=== PATIENT | female | born 1940 | race Caucasian/White ===

== ENCOUNTER 2021-02-13 11:48 | Outpatient (REF) | payer MEDICARE, OTHER, SELFPAY | END 2021-02-13 11:49 | disposition home or self-care (01) | LOC: HO.BBR 11:48 | PROVIDERS: Visit Provider Internal Medicine Hematology | DX: Z13.89 Encounter for screening for other disorder (principal) ==

== ENCOUNTER 2021-05-16 11:48 | Outpatient (REF) | payer MEDICARE, OTHER, SELFPAY | END 2021-05-16 11:49 | disposition home or self-care (01) | LOC: HO.BBR 11:48 | PROVIDERS: PCP Internal Medicine; Visit Provider Internal Medicine Hematology | DX: Z13.89 Encounter for screening for other disorder (principal) ==

== ENCOUNTER 2021-08-14 10:49 | Outpatient (REF) | payer MEDICARE, OTHER, SELFPAY | END 2021-08-14 10:50 | disposition home or self-care (01) | LOC: HO.BBR 10:49 | PROVIDERS: Visit Provider Internal Medicine Hematology | DX: Z13.89 Encounter for screening for other disorder (principal) ==

== ENCOUNTER 2021-11-14 10:39 | Outpatient (REF) | payer MEDICARE, OTHER, SELFPAY | END 2021-11-14 10:40 | disposition home or self-care (01) | LOC: HO.BBR 10:39 | PROVIDERS: Visit Provider Internal Medicine Hematology | DX: Z13.89 Encounter for screening for other disorder (principal) ==

== ENCOUNTER 2022-02-15 10:05 | Outpatient (REF) | payer MEDICARE, OTHER, SELFPAY | END 2022-02-15 10:06 | disposition home or self-care (01) | LOC: HO.BBR 10:05 | PROVIDERS: Visit Provider Internal Medicine Hematology | DX: Z13.89 Encounter for screening for other disorder (principal) ==

== ENCOUNTER 2022-05-18 10:43 | Outpatient (REF) | payer MEDICARE, OTHER, SELFPAY | END 2022-05-18 10:44 | disposition home or self-care (01) | LOC: HO.BBR 10:43 | PROVIDERS: Visit Provider Internal Medicine Hematology | DX: Z13.89 Encounter for screening for other disorder (principal) ==

== ENCOUNTER 2022-08-16 10:54 | Outpatient (REF) | payer MEDICARE, OTHER, SELFPAY | END 2022-08-16 10:55 | disposition home or self-care (01) | LOC: HO.BBR 10:54 | PROVIDERS: Visit Provider Internal Medicine Hematology | DX: Z13.89 Encounter for screening for other disorder (principal) ==

== ENCOUNTER 2022-12-13 12:12 | Outpatient (REF) | payer MEDICARE, OTHER, SELFPAY | END 2022-12-13 12:13 | disposition home or self-care (01) | LOC: HO.BBR 12:12 | PROVIDERS: Visit Provider Internal Medicine Hematology | DX: Z13.89 Encounter for screening for other disorder (principal) ==

== ENCOUNTER 2023-03-13 11:51 | Outpatient (REF) | payer MEDICARE, OTHER, SELFPAY | END 2023-03-13 11:52 | disposition home or self-care (01) | LOC: HO.BBR 11:51 | PROVIDERS: Visit Provider Internal Medicine Hematology | DX: Z13.89 Encounter for screening for other disorder (principal) ==

== ENCOUNTER 2023-06-13 10:50 | Outpatient (REF) | payer MEDICARE, OTHER, SELFPAY | END 2023-06-13 10:51 | disposition home or self-care (01) | LOC: HO.BBR 10:50 | PROVIDERS: PCP Internal Medicine; Visit Provider Internal Medicine Hematology | DX: Z13.89 Encounter for screening for other disorder (principal) ==

== ENCOUNTER 2023-09-16 11:41 | Outpatient (REF) | payer MEDICARE, OTHER, SELFPAY | END 2023-09-16 11:42 | disposition home or self-care (01) | LOC: HO.BBR 11:41 | PROVIDERS: PCP Internal Medicine; Visit Provider Internal Medicine Hematology | DX: Z13.89 Encounter for screening for other disorder (principal) ==

== ENCOUNTER 2024-01-16 10:51 | Outpatient (REF) | payer MEDICARE, OTHER, SELFPAY | END 2024-01-16 10:52 | disposition home or self-care (01) | LOC: HO.BBR 10:51 | PROVIDERS: PCP Internal Medicine; Visit Provider Internal Medicine Hematology | DX: Z13.89 Encounter for screening for other disorder (principal) ==

== ENCOUNTER 2024-05-07 08:57 | Outpatient (REF) | payer MEDICARE, OTHER, SELFPAY ==
--- OUTSIDE RECORDS SUMMARY | 2024-05-07 09:42 | XMS_ITS | Continuity of Care Document ---
Author Organization [facility] Address [address] [place] [id number]- Care Team Providers Care Packaging Sales Name Role Phone Martín Matthews MD Primary Care Physician Encounter [facility] R [id number] Date(s): 03/16/24 - 04/15/24 [facility] [address] [place] [address] Attending Physician: Kelby Lux Admitting Physician: AdmKelby garcia Referring Physician: AdmtrKelby Encounter Type: Triage Allergies, Adverse Reactions, Alerts Substance Criticality Severity Reaction Reaction Severity Status codeine gi Active penicillins hives Active Reglan Active Immunizations Given and Recorded Vaccine Date Status Refusal Reason Influenza Virus Vaccine (oldterm) 02/14/24 Recorde d Influenza Virus Vaccine (oldterm) 01/15/23 Recorde d Influenza Virus Vaccine (oldterm) 12/03/19 Recorde d Influenza Virus Vaccine (oldterm) 01/23/19 Recorde d Influenza Virus Vaccine (oldterm) 1 02/03/08 Given Influenza Virus Vaccine (oldterm) 03/28/07 Given Influenza Virus Vaccine (oldterm) 2 02/12/06 Given SARS-CoV-2(COVID-19)mRNA-LNP vac([id number]) 02/11/24 Recorded SARS-CoV-2(COVID-19)mRNA-LNP vac(ygf632) 03/08/23 Recorded RSV vaccine preF3, recombinant 03/22/23 Recorded [id number] bivalent booster vax 10/30/22 Recorded [id number] 12y+ bivalent booster vax 01/11/22 Recorded influenza virus vaccine, inactivated 01/02/22 Jay rded influenza virus vaccine, inactivated 01/11/21 Jay rded influenza virus vaccine, inactivated 01/02/19 Jay rded influenza virus vaccine, inactivated 3 02/17/18 Gi tracey influenza virus vaccine, inactivated 4 02/11/17 Gi tracey influenza virus vaccine, inactivated 03/16/16 Jay rded influenza virus vaccine, inactivated 01/13/16 Jay rded influenza virus vaccine, inactivated 5 01/25/15 Re corded influenza virus vaccine, inactivated 6 01/11/14 Gi tracey influenza virus vaccine, inactivated 7 01/20/13 Re corded influenza virus vaccine, inactivated 8 02/19/12 Gi tracey influenza virus vaccine, inactivated 05/25/11 Gi tracey influenza virus vaccine, inactivated 10 01/20/11 G iven influenza virus vaccine, inactivated 11 01/05/10 G iven SARS-CoV-2 mRNA ([id number]) vax 08/10/21 Recorded SARS-CoV-2 (COVID-19) mRNA BNT-162b2 vac 02/02/21 Recorded SARS-CoV-2 (COVID-19) mRNA BNT-162b2 vac 06/07/20 Recorded SARS-CoV-2 (COVID-19) mRNA BNT-162b2 vac 05/17/20 Recorded zoster vaccine, inactivated 05/04/19 Recorded zoster vaccine, inactivated 01/23/19 Recorded tetanus-diphtheria toxoids (Td) 08/19/18 Recorded tetanus-diphtheria toxoids (Td) 12 08/27/06 Given tetanus-diphtheria toxoids (Td) 09/08/96 Given pneumococcal 13-valent vaccine 13 02/28/15 Recorde d tetanus/diphtheria/pertussis, acel(Tdap) 09/29/12 Given FluLaval (oldterm) 01/13/09 Given Pneumococcal Vaccine (oldterm) 08/10/03 Given 1Admin Note: sanofi 2Admin Note: SONOFI PASTEUR 3Result Comment: [02/17/2018] [id number] 4Result Comment: [02/11/2017] AFFLURIA 0.5 [id number] 5Result Comment: [03/30/2015] [facility] 6Admin Note: FLUZONE [id number] 7Result Comment: [04/02/2013] [facility] pt [facility] 8Admin Note: given w/ o incident 9Admin Note: PER PT 10Admin Note[facility] 11Admin Note: given without incident and handout given 12Admin Note: [facility] 13Result Comment: [03/30/2015] [facility] Medications acetaminophen 650 mg oral tablet, extended release 1 tablet, By Mouth, Every 8 hours, # 90 tablet, 0 Refills, Maintenance, 02/18/24 1:42:00 PM EST, [id number], 175, cm, 02/14/24 11:30:00 EDT, Height, 90.4, kg, 01/28/24 8:41:00 EDT, Dry Weight Start Date: 02/18/24 Status: Ordered Quantity: 90.0 Unit: tablet Repeat number: 1 amiodarone 200 mg oral tablet 200 mg, 1, tablet, By Mouth, Daily, # 30 tablet, Refills 6, Tot. Refills 6, Maintenance, 12/20/23 7:43:00 AM EDT, Route to Pharmacy Electronically, [facility]/pharmacy #[id number], Partial fill upon patient requestif the prescription is for a schedule II opioid drug., 175, cm, 12/19/23 7:38:00 EDT, Height, 89.8,kg, 11/28/23 9:30:00 EDT, Dry Weight Start Date: 12/20/23 Status: Ordered Quantity: 30.0 Unit: tablet Repeat number: 7 amLODIPine 10 mg oral tablet 1 tablet = 10 mg, By Mouth, Daily, # 90 tablet, 3 Refills, Maintenance, 11/27/23 10:32:00 AM EDT, Tablet, [facility]/pharmacy #[id number], 175, cm, 11/25/23 7:54:00 EDT, Height, 89, kg, 11/24/23 14:28:00 EDT, Dry Weight Start Date: 11/27/23 Stop Date: 11/21/24 Status: Ordered Quantity: 90.0 Unit: tablet Repeat number: 4 atorvastatin 40 mg oral tablet 1 tablet = 40 mg, By Mouth, Daily, # 90 tablet, 3 Refills, Maintenance, 02/19/24 12:32:00 PM EST, Tablet, [facility]/pharmacy #[id number], Partial fill upon patient request if the prescription is for a schedule IIopioid drug., 175, cm, 02/19/24 11:56:00 EST, Height, 90.4, kg, 01/28/24 8:41:00 EDT, Dry Weight Start Date: 02/19/24 Status: Ordered Quantity: 90.0 Unit: tablet Repeat number: 4 Compression Stockings See Instructions, # 2 each, Maintenance, surgical, calf length 20-30 mm Hg Dx: Venous insufficiency(I87.2) Length of Need: lifetime, 03/02/21 12:22:00 PM EST, Supply Start Date: 03/02/21 Status: Ordered Quantity: 2.0 Unit: each Repeat number: 1 CPAP Machine See Instructions, # 1 each, Maintenance, AutoCPAP 10-14, 01/14/23 9:32:00 AM EDT, Supply Start Date: 01/14/23 Status: Ordered Quantity: 1.0 Unit: each Repeat number: 1 Eliquis 5 mg oral tablet 1 tablet, By Mouth, 2 times a day, # 180 tablet, 3 Refills, Maintenance, 07/31/23 10:00:00 PM EDT, [id number], 174, cm, 07/18/23 8:47:00 EDT, Height, 93.1, kg, 01/24/23 11:12:00 EDT, Dry Weight Start Date: 07/31/23 Status: Ordered Quantity: 180.0 Unit: tablet Repeat number: 1 irbesartan 300 mg oral tablet 1 tablet = 300 mg, By Mouth, Daily, # 90 tablet, 1 Refills, Maintenance, 02/20/24 4:26:00 PM EST, Tablet, [facility]/pharmacy #[id number], Partial fill upon patient request if the prescription is for a schedule IIopioid drug., 175, cm, 02/19/24 11:56:00 EST, Height, 90.4, kg, 01/28/24 8:41:00 EDT, Dry Weight Start Date: 02/20/24 Status: Ordered Quantity: 90.0 Unit: tablet Repeat number: 2 mesalamine 250 mg oral capsule, extended release = 250 mg, By Mouth, 2 times a day, # 480 capsule, 0 Refills, Maintenance, 06/17/22 8:32:00 PM EST, [facility], Partial fill upon patient request if the prescription is for a schedule II opioid drug. Start Date: 06/17/22 Status: Ordered Quantity: 480.0 Unit: capsule Repeat number: 1 Multivitamin Tablet 1 tablet, By Mouth, Daily, 0 Refills, 11/08/05 3:29:15 PM EDT Start Date: 11/08/05 Status: Ordered Repeat number: 1 nystatin-triamcinolone topical 367861 u/gm-0.1% cream 1 applicator, Topically, 3 times a day, # 30 Gm, 5 Refills, Maintenance, 07/18/23 9:14:00 AM EDT, [id number], 1 applicator Topically 3 times a day, 174, cm, 07/18/23 8:47:00 EDT, Height, 93.1, kg, 01/24/23 11:12:00 EDT, Dry Weight Start Date: 07/18/23 Status: Ordered Quantity: 30.0 Unit: g Repeat number: 6 omeprazole 40 mg oral enteric coated capsule 1 capsule = 40 mg, By Mouth, Daily, replace 20 mg, # 30 capsule, 11 Refills, Maintenance, 03/11/24 12:50:00 PM EST, EC Capsule, [facility], Partial fill upon patient request if the prescription is for a schedule II opioid drug., 175, cm, 03/11/24 12:04:00 EST, Height, 88.9, kg, 03/11/24 12:04:00 EST, Dry Weight Start Date: 03/11/24 Stop Date: 03/06/25 Status: Ordered Quantity: 30.0 Unit: capsule Repeat number: 12 Indication: Gastro-esophageal reflux disease without esophagitis OUTPATIENT PHYSICAL THERAPY OUTPATIENT PHYSICAL THERAPY, See Instructions, # 14 each, Refills 0, Tot. Refills 0, Maintenance, For walking difficulties, 06/19/22 11:55:00 AM EST, Supply Start Date: 06/19/22 Status: Ordered Quantity: 14.0 Unit: each Repeat number: 1 torsemide 5 mg oral tablet 1 tablet = 5 mg, By Mouth, Daily, # 90 tablet, 3 Refills, Maintenance, 03/11/24 12:51:00 PM EST, Tablet, [id number], this is the correct dosage, 175, cm, 03/11/24 12:04:00 EST, Height, 88.9, kg, 03/11/24 12:04:00 EST, Dry Weight Start Date: 03/11/24 Status: Ordered Quantity: 90.0 Unit: tablet Repeat number: 4 Problem List Condition Confirmation Course Effective Dates Status H ealth Status Informant Acne rosacea Confirmed Active Aortic stenosis miold to moderate Confirmed 06/13/16 Active Cholelithiasis seen on CT scan Confirmed 11/08/17 Active Cervical osteoarthritis with multiple disc space narrowings Confirmed 04/01/08 Active Chronic kidney disease, stage 3a 1 Confirmed Active Chronic mixed headache syndrome Confirmed 04/19/08 Active COVID-19 2 Confirmed 05/10/23 Active Crohn's disease Confirmed Active Grade II diastolic dysfunction with mild Confirmed 06/17/20 Active Rectocele Confirmed Active FH: Diabetes mellitus father also with HBP Confirmed Active GORD - Gastro-esophageal reflux disease Confirmed Active H/O: obesity Confirmed Active 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 Confirmed 11/08/20 Active Hyperlipidemia Confirmed Active Hypertension Confirmed Active IBS - Irritable bowel syndrome Confirmed Active Malignant melanoma face Confirmed 12/17/17 Active OA - Osteoarthritis of knee-left knee Confirmed Active JOSE ANTONIO (obstructive sleep apnea) Confirmed 01/07/21 Active Osteopenia Confirmed Active PAF (paroxysmal atrial fibrillation) Confirmed Active Neuropathy, peripheral Confirmed Active PERSONAL HISTORY OF COLONIC POLYPS Confirmed Active PUD - Peptic ulcer disease-Hpylori + 1997 (Prevpak) Confirmed Active Restless leg Confirmed Active RBBB Confirmed 02/12/22 Active Stripping of varicose veins Confirmed Active Syncope Confirmed Active Thyroid nodule Confirmed Active Torticollis age 3 Confirmed Active Vaginal hysterectomy Confirmed Active 1Per chart review meeting GFR criteria 2Problem added by Discern Expert Social History Social History Type Response Smoking Status Never smoker; Tobacc o user in household: No entered on: 04/02/13 Sex Female Sex Representation Female (finding) Cardiology * Event Display: [employer] Report Authored Date: * Pennie Jeffries MD: REVIEW Event Display: [employer] Report Authored Date: * Event Display: [employer] Report Authored Date: Patient Care team information Care Team Personnel Name: Martín Matthews MD Position: [facility] Physician - Primary Care Member Role: PCP Address: [address] [place] [address] Adult [place] [address]- [place] [employer]: Name: Magalie Romero RN Position: S RN Member Role: Primary Care Nurse Name: Kaitlynn Estevez RN Position: S RN Member Role: Primary Care Nurse Name: Get Quintana RN Position: [facility] RN Member Role: Primary Care Nurse Name: Tamika Hobson RN Position: [facility] RN Member Role: Primary Care Nurse Care Team Related Persons Name: CRISTIAN MAHMOOD Name: SHAD MAHMOOD Name: MARK ANTHONY DUMONT Insurance Providers Guarantor name: OBEY MAHMOOD Health Plan Information #: 1 Payer: MEDICARE PART B OUTPT Member Number: NA Policy Number: NA Group Number: NA Health Plan Information #: 2 Payer: [facility] Member Number: NA Policy Number: NA Group Number: NA
== END 2024-05-07 08:58 | disposition home or self-care (01) ==
LOC: HO.BBR 08:57
PROVIDERS: PCP Internal Medicine; Visit Provider Internal Medicine Hematology
DX: Z13.89 Encounter for screening for other disorder (principal)

== ENCOUNTER 2024-11-04 10:38 | Outpatient (REF) | payer MEDICARE, OTHER, SELFPAY ==
--- OUTSIDE RECORDS SUMMARY | 2024-11-04 11:41 | XMS_ITS | Clinical Summary ---
Author Organization [facility] [address] [facility] Address [address] [place] [address] Phone Care Team Providers Care Bar Tacker Name Role Phone Martín Matthews MD Primary Care Provider [phone] Allergies Active Allergy Reactions Criticality Noted Date Comments Codeine 03/05/2024 Penicillins 03/05/2024 Metoclopramide Hcl 03/05/2024 Medications torsemide (DEMADEX) 5 mg tablet Take 1 tablet (5 mg total) by mouth 1 (one) time each day. 4 Active omeprazole (PriLOSEC) [address] capsule Take 1 capsule (40 mg total) by mouth 1 (one) time each day. 4 Active irbesartan (AVAPRO) 300 mg tablet Take 1 tablet (300 mg total) by mouth 1 (one) time each day. 4 Active gabapentin (NEURONTIN) 100 mg capsule TAKE 1 CAP ORALLY 2 HOURS PRIOR TO RLS ONSET, INCREASE WEEKLY BY 1 CAP TO A MAX OF 3CAPS AT BED 4 Active atorvastatin (LIPITOR) 40 mg tablet Take 1 tablet (40 mg total) by mouth 1 (one) time each day. 4 Active Eliquis 5 mg tablet Take 1 tablet (5 mg total) by mouth 2 (two) times a day. 4 Active amLODIPine (NORVASC) 10 mg tablet Take 1 tablet (10 mg total) by mouth 1 (one) time each day. 4 Active amiodarone (PACERONE) 200 mg tablet Take 1 tablet (200 mg total) by mouth 1 (one) time each day. 4 Active mesalamine (Pentasa) 250 mg CR capsuleIndication s:Irritable bowel syndrome with constipation,Facilities Painter chidi constipation with overflow Take 4 capsules (1,000 mg total) by mouth 1 (one) time each day. 120 capsule 3 5 08/11/19 26 Active multivitamin with iron-minerals 9 mg iron/15 mL liquid Take 15 mL by mouth 1 (one) time each day. Active Active Problems Problem Noted Date Diagnosed Date Crohn's disease of small int estine without complication ([facility] V24, [facility] V28) 05/06/20242001 Overview (05/06/2024): Active patchy mild colitis with regnerative changes - 2001 Chronic constipation with overflow 03/06/2024 Assessment & Plan (08/14/2024 10:01 AM EDT): Asymptomatic Irritable bowel syndrome with constipation 03/05 Assessment & Plan (08/14/2024 10:01 AM EDT): Stable. Continue Benefiber 1 packet daily and dicyclomine as needed abdominal pain Assessment & Plan (05/06/2024 3:00 PM EST): Symptoms consistent with IBS-C and likely a component of pelvic floor dysfunction. Encounters Date Type Department Care Team Description 08/14/2024 9:40 AM EDT Office Visit Gastroenterology - [address] [place] [id number] Brandon Mustafa PA Irritable bowel syndrome with constipation (Primary Dx); Chronic constipation with overflow; Full incontinence of feces from Last 3 Months Surgical History Surgery Date Site/Laterality Comments COLONOSCOPY 04/15/2016 - 05/15/2016 ta x1, hpx1, sig tics COLONOSCOPY 08/14/2011 - 09/13/2011 12 mm ascending TA (5yr) Medical History Medical History Date Comments Irritable bowel syndrome Crohn's disease ([facility] V24, [facility] V28) ileitis GERD (gastroesophageal reflux disease) Hypertension A-fib ([facility] V24, [facility] V28) Hemochromatosis Dr. Tillman C2 80Y homozygote Colon polyp Social History Tobacco Use Types Packs/Day Years Used Date Smoking Tobacco: Never Smokeless Tobacco: Never Tobacco Cessation:Counseling Given: Not Answered Alcohol Use Standard Drinks/Week Comments Never 0 (1 standard drink = 0.6 oz pur e alcohol) Comments Unknown Sex and Gender Information Value Date Recorded Sex Assigned at Not on file Legal Sex Female 11:06 AM EDT Gender Identity Not on file Sexual Orientation Not on file Obstetrics History Last Filed Vital Signs Vital Sign Reading Time Taken Comments Blood Pressure - - Pulse - - Temperature - - Respiratory Rate - - Oxygen Saturation - - Inhaled Oxygen Concentration - - Weight 88.5 kg (195 lb) 08/14/2024 9:18 AM EDT Height 175.3 cm (5' 9 ) 08/14/2024 9:18 AM EDT Body Mass Index 28.8 08/14/2024 9:18 AM EDT Plan of Treatment Upcoming Encounters Date Type Department Care Team (Late st Contact Info) Description 11/23/2024 10:00 AM EDT Office Visit Gastroenterology - [address] [place] [address] Brandon Mustafa PA [address] [place] [address] Health Maintenance Due Date Last Done Comments Cholesterol Screening (Lipid Panel) 11/15/2023 Falls Risk Assessment 11/15/2023 Medicare Annual Wellness Visit 11/15/2023 Osteoporosis Screening (Bone Density Screening) 11/15/2023 Social Influencers of Health Screening 11/15/2023 Hypertension/CHF/CAD Annual BMP Blood Test 03/06/2024 Depression Screening 04/15/2024 COVID-19 Vaccine ( season) 2024 02/11/2024, 03/08/2023, 10/30/2022, Additional history exists Influenza Vaccine (#1) 2024 , 01/15/2023, 01/02/2022, Additional history exists DTaP,Tdap,and Td Vaccines (5 - Td or Tdap) 08/19/2028 08/19/2018, 09/29/2012, 08/27/2006, Additional history exists Zoster Vaccines Completed 05/04/2019, 01/23/2019 RSV Immunization Adult Patients Completed 03/22/2023 Pneumococcal Vaccine: 50+ Years Completed 05/02/2024, 02/28/2015, 08/10/2003 HIB Vaccines Aged Out No longer eligi ble based on patient's age to complete this topic HPV Vaccines Aged Out No longer eligi ble based on patient's age to complete this topic Hepatitis A Vaccines Aged Out No long er eligible based on patient's age to complete this topic Hepatitis B Vaccines Aged Out No long er eligible based on patient's age to complete this topic IPV Vaccines Aged Out No longer eligi ble based on patient's age to complete this topic MMR Vaccines Aged Out No longer eligi ble based on patient's age to complete this topic Meningococcal ACWY Vaccine Aged Out N o longer eligible based on patient's age to complete this topic Meningococcal B Vaccine Aged Out No l onger eligible based on patient's age to complete this topic RSV Immunization Patients Under 20 months Aged Out No longer eligible based on patient's age to complete this topic Varicella Vaccines Aged Out No longer eligible based on patient's age to complete this topic Insurance MEDICARE [facility] Care Teams Bar Tacker Relationship Specialty Start Date End Date Martín Matthews MD [address] [place] [address] PCP - General Internal Medicine 02/05/24
== END 2024-11-04 10:39 | disposition home or self-care (01) ==
LOC: HO.BBR 10:38
PROVIDERS: PCP Internal Medicine; Visit Provider Internal Medicine Hematology
DX: Z13.89 Encounter for screening for other disorder (principal)